=== PATIENT | male | born 2000 | race African-American/Black ===

== ENCOUNTER 2022-11-08 12:52 | Emergency (ER) | payer MEDICAID ==
[~2022-11-08] VITALS: Ht 188 cm; Wt 90.0 kg
[2022-11-08 12:58] VITALS: BP 159/106; PULSE 123; RESP 16; TEMP 98.2; O2SAT 99
== END 2022-11-08 13:32 | disposition left against medical advice (07) ==
LOC: ER 12:52
DX: Z53.21 Procedure and treatment not carried out due to patient leaving prior to being seen by health care provider (principal)
CPT/HCPCS: 99281

== ENCOUNTER 2022-11-08 14:21 | Emergency (ER) | payer MEDICAID ==
[~2022-11-08] VITALS: Ht 190.5 cm; Wt 97.5 kg
[2022-11-08 14:33] VITALS: BP 120/90; PULSE 83; RESP 18; TEMP 98.9; O2SAT 100
[2022-11-08 15:41] LABS: BASOPHILS % 0.2 % (0.0-2.0); EOSINOPHILS % 0.5 % (0.0-5.0); HEMATOCRIT. 43.4 % (42.0-52.0); HEMOGLOBIN. 14.7 g/dL (14.0-18.0); LYMPHOCYTES % 10.9 % (20.0-50.0); MEAN CORPUSCULAR HEMOGLOBIN 27.4 pg (28.0-32.0); MEAN CORPUSCULAR VOLUME 81.1 fL (80.0-94.0); MEAN PLATELET VOLUME 8.1 fl (7.4-10.4); MONOCYTES % 4.9 % (2.0-8.0); NEUTROPHILS % 83.5 % (40.0-76.0); PLATELET 288 x1000/uL (130-400); RED BLOOD CELL COUNT 5.35 mill/uL (4.7-6.1); RED CELL DISTRIBUTION WIDTH 14.5 % (11.6-14.6)
[2022-11-08 15:47] LABS: CHLORIDE 106 mEq/L (98-107)
[2022-11-08 15:56] LABS: ETHANOL BLOOD < 10 mg/dL (-10)
== END 2022-11-08 17:16 | disposition home or self-care (01) ==
LOC: ER 15:00
DX: F22 Delusional disorders (principal); F12.10 Cannabis abuse, uncomplicated; F31.9 Bipolar disorder, unspecified; I10 Essential (primary) hypertension; F20.9 Schizophrenia, unspecified; Z87.891 Personal history of nicotine dependence
CPT/HCPCS: 36415; 80053; 80320; 85025; 99284; G0480

== ENCOUNTER 2023-09-26 01:58 | Emergency (ER) | payer MEDICAID, OTHER ==
[~2023-09-26] VITALS: Ht 182.9 cm; Wt 85.0 kg
[2023-09-26 02:17] VITALS: O2SAT 100
[2023-09-26 03:05] LABS: BASOPHILS % 0.6 % (0.0-2.0); DIFFERENTIAL COMMENT 0; EOSINOPHILS % 4.4 % (0.0-5.0); HEMATOCRIT. 41.5 % (42.0-52.0); LYMPHOCYTES % 27.8 % (20.0-50.0); MEAN CORPUSCULAR HEMOGLOBIN 26.8 pg (28.0-32.0); MEAN CORPUSCULAR HGB CONC 33.8 g/dL (31.0-37.0); MEAN CORPUSCULAR VOLUME 79.2 fL (80.0-94.0); MONOCYTES % 7.3 % (2.0-8.0); NEUTROPHILS % 59.9 % (40.0-76.0); PLATELET 281 x1000/uL (130-400); RED BLOOD CELL COUNT 5.24 mill/uL (4.7-6.1); RED CELL DISTRIBUTION WIDTH 14.4 % (11.6-14.6)
[2023-09-26 03:07] LABS: CLARITY URINE CLEAR (CLEAR); COLOR URINE YELLOW (YELLOW); GLUCOSE URINE NEGATIVE (NEGATIVE); KETONES URINE NEGATIVE (NEGATIVE); LEUKOCYTE ESTERASE URINE 1+ (NEGATIVE); NITRITE URINE NEGATIVE (NEGATIVE); OCCULT BLOOD URINE NEGATIVE (NEGATIVE); PH URINE 5.5 (4.5-8.0); PROTEIN URINE NEGATIVE (NEGATIVE); SPECIFIC GRAVITY URINE 1.017 (1.005-1.030); UROBILINOGEN URINE 0.2 E.U./dL (0.2-1.0)
[2023-09-26 03:09] LABS: CHLORIDE 106 mEq/L (98-107); POTASSIUM 4.2 mEq/L (3.5-5.1); SODIUM 141 mEq/L (136-145)
[2023-09-26 03:10] LABS: CARBON DIOXIDE 32 mEq/L (21-32)
[2023-09-26] MEDS: OLANZAPINE 5MG TABLET PO ONE (03:10)
[2023-09-26 03:11] LABS: CALCIUM 9.7 mg/dL (8.7-10.4)
[2023-09-26 03:14] LABS: *AMPHETAMINES SCREEN URINE NEGATIVE (NEGATIVE); *BARBITURATES SCREEN URINE NEGATIVE (NEGATIVE); *BENZODIAZEPINES SCREEN URINE NEGATIVE (NEGATIVE); *COCAINE SCREEN URINE NEGATIVE (NEGATIVE); CANNABINOID URINE SCREEN NEGATIVE (NEGATIVE); ECSTASY MDMA SCREEN URINE NEGATIVE (NEGATIVE); METHADONE URINE SCREEN NEGATIVE (NEGATIVE); OPIATES URINE SCREEN NEGATIVE (NEGATIVE); PHENCYCLIDINE URINE SCREEN NEGATIVE (NEGATIVE)
[2023-09-26 03:16] LABS: GLUCOSE 97 mg/dL (70-105); UREA NITROGEN BLOOD 10 mg/dL (9-23)
[2023-09-26 03:17] LABS: ACETAMINOPHEN < 2 ug/mL (10-30)
[2023-09-26 03:41] LABS: ETHANOL BLOOD < 10 mg/dL (<10)
[2023-09-26 05:32] LABS: ALANINE AMINOTRANSFERASE 26 IU/L (10-49); ALBUMIN 4.2 g/dL (3.2-4.8); ASPARTATE AMINOTRANSFERASE 47 IU/L (<34); BILIRUBIN DIRECT 0.2 mg/dL (<=3.0); BILIRUBIN TOTAL 0.6 mg/dL (0.1-1.0); PROTEIN TOTAL 7.3 g/dL (6.0-8.3)
[2023-09-26 05:50] LABS: SQUAMOUS EPITHELIAL CELL URINE 1+ /lpf (RARE/1+)
[2023-09-26 05:53] LABS: RBC URINE 0-2 /hpf (0-2)
[2023-09-26 05:56] LABS: BACTERIA URINE 1+
[2023-09-26] MEDS: NITROFURANTOIN 100MG M/M CAPSULE PO SCH (10:00)
[2023-09-26 12:00] VITALS: BP 130/90; PULSE 60; RESP 16; TEMP 98.3
== END 2023-09-26 12:16 ==
LOC: ER 01:58
DX: R45.851 Suicidal ideations (principal); F32.A Depression, unspecified; F41.9 Anxiety disorder, unspecified; F20.9 Schizophrenia, unspecified; F12.90 Cannabis use, unspecified, uncomplicated; Z20.822 Contact with and (suspected) exposure to COVID-19
CPT/HCPCS: 80076; 80305; 80048; 81003; 80307; 80329; 80320; 85025; 87086; 36415; 99285; 87426; Z7610; G0480

== ENCOUNTER 2023-10-30 12:45 | Emergency (ER) | payer MEDICAID, OTHER ==
[~2023-10-30] VITALS: Ht 188 cm; Wt 95.0 kg
[2023-10-30 12:48] VITALS: PULSE 97; RESP 18
[2023-10-30 12:52] VITALS: BP 127/80; TEMP 98.2; O2SAT 99
== END 2023-10-30 13:04 | disposition home or self-care (01) ==
LOC: ER 12:45
DX: S01.21XD Laceration without foreign body of nose, subsequent encounter (principal); F41.9 Anxiety disorder, unspecified; F32.9 Major depressive disorder, single episode, unspecified; F20.9 Schizophrenia, unspecified; F12.10 Cannabis abuse, uncomplicated; X58.XXXD Exposure to other specified factors, subsequent encounter
CPT/HCPCS: 99281